=== PATIENT | male | born 1990 | race Caucasian/White ===

== ENCOUNTER 2023-05-24 06:32 | Day surgery (SDC) | payer OTHER ==
[~2023-05-24 06:32] MED LIST: Acetaminophen 1,000 MG in Premix Bag 1 BAG IV SCH; Albuterol 0.083% 2.5 MG/3 ML Neb Soln NEB PRN; HYDROmorphone 1 MG/ML Syringe IVPUSH PRN; Lactated Ringers 1,000 ML IV SCH; Metoclopramide 10 MG/2 ML SDV IVPUSH PRN; Morphine 2 MG/ML SYRINGE IVPUSH PRN; Naloxone 0.4 MG/ML SDV IVPUSH PRN; Ondansetron 4 MG/2 ML SDV IVPUSH PRN; Pregabalin 75 MG Cap PO SCH; cefOXitin 2 GM in Sodium Chloride 0.9% 50 ML IV SCH; droPERidol 5 MG/2 ML SDV IVPUSH PRN; fentaNYL 50 MCG/ML SDV IVPUSH PRN
[2023-05-24] MEDS ORDERED: Lidocaine 1% with EPINEPHrine 1:100,000 50 ML MDV ONE (07:26)
[2023-05-24] MEDS ORDERED: Bupivacaine 0.25% 30 ML SDV ONE (07:26)
[2023-05-24] MEDS ORDERED: Lidocaine 2% 5 ML SDV ONE (07:39)
[2023-05-24] MEDS ORDERED: Ondansetron 4 MG/2 ML SDV ONE (07:39)
[2023-05-24] MEDS ORDERED: Sugammadex Sodium 200 MG/2 ML VIAL ONE (07:39)
[2023-05-24] MEDS ORDERED: fentaNYL 100 MCG/2 ML SDV ONE (07:39)
[2023-05-24] MEDS ORDERED: Rocuronium Bromide 50 MG/5 ML Syringe ONE (07:39)
[2023-05-24] MEDS ORDERED: Propofol 200 MG/20 ML SDV ONE (07:39)
[2023-05-24] MEDS ORDERED: Ketorolac 30 MG/ML SDV ONE (07:39)
[2023-05-24] MEDS ORDERED: Dexamethasone 4 MG/ML 5 ML MDV ONE (07:39)
[2023-05-24] MEDS ORDERED: cefOXitin 1 GM Vial ONE (08:19)
== END 2023-05-24 10:30 | disposition home or self-care (01) ==
LOC: MW.SDS 06:32
PROVIDERS: ATTEND Surgery
DX: L05.91 Pilonidal cyst without abscess (principal); E66.9 Obesity, unspecified; F17.210 Nicotine dependence, cigarettes, uncomplicated; Z79.899 Other long term (current) drug therapy; Z68.35 Body mass index [BMI] 35.0-35.9, adult
CPT/HCPCS: 11770; A9270; J0131; J0694; J1100; J1885; J2405; J2704; J3010; J3490; J7120